=== PATIENT | male | born 1985 | race Two or more races ===

== ENCOUNTER 2024-12-02 21:56 | Emergency (ER) | payer MEDICAID, SELFPAY ==
[2024-12-02 21:58] VITALS: BMI 25.6
[2024-12-02 23:31] VITALS: BP 159/108; PULSE 73; RESP 16; TEMP 36.6; O2SAT 99
--- NOTE | 2024-12-02 23:31 | PD.EDEYE ---
ED Eye Problem RME/HPI General Chief complaint: Eye Problems Stated complaint: L EYE INJURY Time Seen by Provider: 12/02/24 23:14 Arrival date/time: 12/02/24 21:56 39M with no significant PMH presents to ED with L eye irritation/pain after he accidentally got something in it. Patient does not wear contacts. Limitations: no limitations Related Data Previous Rx's ?Medication ?Instructions ?Recorded erythromycin 5 mg/gram (0.5 %) eye 0.5 inch ophthalmic (eye) QID 7 12/03/24 ointment days #3.5 grams Allergies Allergy/AdvReac Type Severity Reaction Status Date / Time NKA* Allergy Uncoded 12/02/24 22:02 Review of Systems Review of Systems Systems Reviewed: All systems reviewed, normal except as documented Eyes Eyes: Reports as per HPI and Reports irritation Past Medical History Social History SMOKING STATUS: Never smoker ED Exam General Limitations: Present no limitations General appearance: Present alert and in no apparent distress Head Head exam: Present atraumatic Eye Eye exam: Present PERRL and EOMI Expanded Eye Exam Sclera/Conjunctival: left: injection (mild) Neck Neck exam: Present normal inspection, full ROM and trachea midline Chest Chest inspection: Present normal inspection and symmetric chest wall rise Neurological Exam Neurological exam: Present alert and oriented X3 Psychiatric Psychiatric exam: Present normal affect and normal mood Skin Skin exam: Present warm, dry, intact and normal color Course Quality Measures none Orders Category Date Time Status ED Eye Irrigation ONCE Care 12/02/24 23:42 Active Mcclellan Lamp to Bedside X1 Care 12/02/24 23:16 Active Erythromycin Op Oint 0.5% Med 12/02/24 23:16 Discontinued 1 gm LEFT EYE X1 ONE Fluorescein Sodium [Bio-Krista] Med 12/02/24 23:16 Discontinued 1 mg LEFT EYE X1 ONE TETRACAINE Op Marleen 0.5% [Pontocaine Op Marleen 0.5%] Med 12/02/24 23:16 Discontinued 1 drop LEFT EYE X1 ONE Vital Signs Vital signs: Vital Signs Temperature 97.8 F 12/02/24 23:31 Pulse Rate 73 12/02/24 23:31 Respiratory Rate 16 12/02/24 23:31 Blood Pressure 159/108 H 12/02/24 23:31 Pulse Oximetry (%) 99 12/02/24 23:31 O2 at 99% on RA and WNLs Eye MDM Narrative MDM Narrative:: 39M with no significant PMH presents to ED with L eye irritation/pain after he accidentally got something in it. Patient does not wear contacts. Physical exam reveals normal L pupil response and EOM. No gross trauma. Some injection. Patient is afebrile, calm, and alert. Wood's lamp exam reveals small corneal abrasion. 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 Patient data External records reviewed:: [facility] previous records Clinical information provided by:: patient Social determinants that could affect healthcare access:: none Patient has the following chronic illnesses:: none How is presenting disease/condition affected by chronic disease/condition?: no chronic disease Evaluation data The following diagnostics were reviewed and interpreted by me:: other (specify) (none) Lab and/or radiology exams considered but not ordered:: not ordered Interpretation Summary: n/a Medications / Prescriptions Medications or Prescriptions considered but not ordered:: ordered Medication administrations:: Medication Administration History Discontinued Medications Erythromycin (Erythromycin Op Oint 0.5% 1 Gm Packet) 1 gm LEFT EYE X1 ONE Stop: 12/02/24 23:17 Last Admin: 12/02/24 23:37 Dose: 1 gm Documented By: PEPE Co-signed By: PIOTR Fluorescein Sodium (Fluorescein Sod 1 Mg Strp) 1 mg LEFT EYE X1 ONE Stop: 12/02/24 23:17 Last Admin: 12/02/24 23:37 Dose: 1 mg Documented By: PEPE Tetracaine HCl (Tetracaine Pf Op Marleen 0.5% 4 Ml Drpette) 1 drop LEFT EYE X1 ONE Stop: 12/02/24 23:17 Last Admin: 12/02/24 23:37 Dose: 1 drop Documented By: PEPE above Consultations Consultation(s) initiated? (list below): No Diagnosis Eye Problem Differential Diagnosis: corneal abrasion, conjunctivitis, acute iritis, hyphema, periorbital cellulitis, subconjunctival hemorrhage, glaucoma, corneal ulcer and ruptured globe Most likely diagnosis given after review of the tests above:: corneal abrasion Admission Indicated Admission indicated?: not indicated Admission Request Was there a request for admission?: No Disposition Plan Disposition Plan: Discharge Discharge Attestation Discharge Attestation: The patient and all family members were given an opportunity to ask questions and understood the discharge instructions. Discharge instructions specifically effects, indications for sooner follow up or return to the emergency department, and the expected course of current diagnosis. Patient condition: Stable Discharge Plan Plan Patient Disposition: HOME (Self Care) Discharge Disposition comment: Stable Prescriptions/Referrals Prescriptions/Med Rec: New erythromycin 5 mg/gram (0.5 %) ointment 0.5 inch ophthalmic (eye) QID 7 Days Qty: 3.5 0RF Referrals: No Primary/Family,Physician [Primary Care Provider] - In 1 week Problem List Clinical Impression: Corneal abrasion Patient/Caregiver Discharge Instructions Education Materials: ED Corneal Abrasion Additional Instructions: Please follow-up with PCP within 24-48 hours and return immediately if symptoms worsen. See eye doctor soon. Print Language: Belarusian Stand Alone Forms: Patient Portal Info Letter JOSE RAUL/HAJA Supervising Physician RONI Supervising Physician: Dr. Pfeiffer
[2024-12-02] MEDS: TETRACAINE PF OP SOL 0.5% 4 ML DRPETTE 1 DROP LEFT EYE (23:37)
[2024-12-02] MEDS: FLUORESCEIN SOD 1 MG STRP LEFT EYE (23:37)
[2024-12-02] MEDS: Erythromycin Op Oint 0.5% 1 GM PACKET LEFT EYE (23:37)
[2024-12-03 00:20] VITALS: BP 140/90; PULSE 85; RESP 16; TEMP 37; O2SAT 99
== END 2024-12-03 00:21 | disposition home or self-care (01) ==
PROVIDERS: Emergency Provider Emergency Medicine
DX: S05.02XA Injury of conjunctiva and corneal abrasion without foreign body, left eye, initial encounter (principal); X58.XXXA Exposure to other specified factors, initial encounter
CPT/HCPCS: 66999; 99284; A9270